=== PATIENT | female | born 1950 | race African-American/Black ===

== ENCOUNTER 2016-12-26 13:04 | Emergency (ER) | payer MEDICARE, OTHER ==
[~2016-12-26 13:04] MED LIST: ATEN50TA PO; CALC600T4 PO; ESCI10TA PO; ESOM40CA25 PO; GABA-586 PO; HYDR50TA6 PO; MELA3TAB PO; METF850T2 PO; SIMV10TA3 PO
[2016-12-26 15:37] LABS: OBC FLU VALID
[2016-12-26 15:57] LABS: BASO % 0 % (0-3); EOS % 0 % (0-3); HEMATOCRIT 41.9 % (36.0-47.0); HEMOGLOBIN 13.4 g/dL (12.0-15.5); LYMPH # 0.5 x10^3/uL (1.0-4.8); LYMPH % 8 % (24-48); MEAN CORPUSCULAR HEMOGLOBIN 28 pg (25-35); MEAN CORPUSCULAR HGB CONC 32 g/dL (31-37); MEAN CORPUSCULAR VOLUME 87 fL (79-100); MONO % 12 % (0-9); NEUT % 79 % (31-73); PLATELET COUNT 176 x10^3/uL (140-400); RED BLOOD COUNT 4.81 x10^6/uL (3.50-5.40); WHITE BLOOD COUNT 6.2 x10^3/uL (4.0-11.0)
[2016-12-26] MEDS ORDERED: OSELTAMIVIR 75 MG CAPSULE PO ONE (16:00)
[2016-12-26] MEDS ORDERED: IV NORMAL SALINE 1000ML BAG 1,000 ML IV SCH (16:00)
[2016-12-26] MEDS ORDERED: ACETAMINOPHEN 500 MG TABLET PO ONE (16:00)
[2016-12-26 16:04] LABS: CREATININE 0.9 mg/dL (0.6-1.0)
[2016-12-26 16:10] LABS: ALBUMIN 3.7 g/dL (3.4-5.0); ALBUMIN/GLOBULIN RATIO 0.8 (1.0-1.7); TOTAL BILIRUBIN 0.7 mg/dL (0.2-1.0); TOTAL PROTEIN 8.4 g/dL (6.4-8.2)
--- NOTE | 2016-12-26 16:33 | RAD ---
Single view chest History:fever, cough An AP view of the chest is submitted. Comparison: None. Findings: Patient is somewhat rotated for exam. Pericardial cardiac silhouette is within normal limits. There is probably tortuous and possibly ectatic thoracic aorta. There is mild interstitial opacity bilaterally of uncertain chronicity. There is no significant pleural fluid. There is no lobar consolidation. Impression: There is probably tortuous and possibly ectatic thoracic aorta. There is no lobar consolidation. There is mild interstitial opacity of uncertain chronicity.
[2016-12-26 16:44] VITALS: BP 149/76
[2016-12-26] MEDS ORDERED: OSEL75CA PO (16:49)
[2016-12-26] MEDS ORDERED: AZIT250T6 PO (16:49)
--- NOTE | 2016-12-26 16:49 | PHYS DOC ---
Past Medical History Past Medical History: Diabetes-Type II, GERD, Hypertension Past Surgical History: No Surgical History Alcohol Use: None Drug Use: None Adult General Chief Complaint Chief Complaint: FEVER HPI HPI Patient is a 66 year old female who complains that on Tuesday she got sick after work with a cough and a fever. She's been sick since then, a little less than 48 hours now. She feels terrible. She aches all over. She's felt feverish. She has a cough but is not short of air. She's had nausea but no vomiting. No diarrhea. She is in good general health. No chronic lung problems. PCP Dr. Rocha Review of Systems Review of Systems Constitutional: As in history of present illness Eyes: Denies change in visual acuity, redness, or eye pain [] HENT: Denies nasal congestion or sore throat [] Respiratory: As in history of present illness Cardiovascular: Denies chest pain GI: As in history of present illness : Denies dysuria or hematuria [] Musculoskeletal: Denies back pain or joint pain [] Integument: Denies rash or skin lesions [] Neurologic: Denies severe headache, focal weakness or sensory changes [] Current Medications Current Medications Current Medications Medications (Trade) Dose Ordered Sig/Gopi Start Time Stop Time Status Last Admin Dose Admin Acetaminophen 1000 mg 1,000 mg 1X ONCE 12/26/16 16:00 12/26/16 16:01 DC 12/26/16 15:59 1,000 MG Oseltamivir Phosphate (Tamiflu) 75 mg 1X ONCE 12/26/16 16:00 12/26/16 16:01 DC 12/26/16 16:03 75 MG Sodium Chloride (Iv Sodium Chloride 0.9% 1000ml Bag) 1,000 ml @ 1,000 mls/hr Q1H 12/26/16 16:00 12/26/16 16:59 12/26/16 16:00 1,000 MLS/HR Allergies Allergies Allergies Coded Allergies Type Severity Reaction Last Updated Verified No Known Drug Allergies 11/05/16 No Physical Exam Physical Exam Constitutional: Well developed, well nourished, febrile, appears to feel ill, alert, mentating normally. HENT: Normocephalic, atraumatic, bilateral external ears normal, oropharynx moist, no oral exudates, nose normal. [] Eyes: conjunctiva normal, no discharge. [] Neck: Normal range of motion, no stridor. [] Cardiovascular:Heart rate regular rhythm, tachycardic, no murmur [] Lungs & Thorax: Bilateral breath sounds clear to auscultation [] Abdomen: Bowel sounds normal, soft, no tenderness, no masses, no pulsatile masses. [] Skin: Warm, dry, no erythema, no rash. [] Extremities: No tenderness, no cyanosis, no clubbing, ROM intact, no edema. [] Neurologic: Alert and oriented X 3, normal motor function, normal sensory function, no focal deficits noted. [] Current Patient Data Vital Signs Vital Signs Date Time Temp Pulse Resp B/P Pulse Ox O2 Delivery O2 Flow Rate FiO2 12/26/16 14:45 100.4 118 22 148/88 96 Room Air 100.4 Lab Values Laboratory Tests Test 12/26/16 14:50 12/26/16 15:00 Influenza Type A Antigen Positive (NEGATIVE) Influenza Type B Antigen Negative (NEGATIVE) White Blood Count 6.2x10^3/uL (4.0-11.0) Red Blood Count 4.81x10^6/uL (3.50-5.40) Hemoglobin 13.4g/dL (12.0-15.5) Hematocrit 41.9% (36.0-47.0) Mean Corpuscular Volume 87fL (79-100) Mean Corpuscular Hemoglobin 28pg (25-35) Mean Corpuscular Hemoglobin Concent 32g/dL (31-37) Red Cell Distribution Width 14.0% (11.5-14.5) Platelet Count 176x10^3/uL (140-400) Neutrophils (%) (Auto) 79% (31-73) H Lymphocytes (%) (Auto) 8% (24-48) L Monocytes (%) (Auto) 12% (0-9) H Eosinophils (%) (Auto) 0% (0-3) Basophils (%) (Auto) 0% (0-3) Neutrophils # (Auto) 4.9x10^3uL (1.8-7.7) Lymphocytes # (Auto) 0.5x10^3/uL (1.0-4.8) L Monocytes # (Auto) 0.7x10^3/uL (0.0-1.1) Eosinophils # (Auto) 0.0x10^3/uL (0.0-0.7) Basophils # (Auto) 0.0x10^3/uL (0.0-0.2) Sodium Level 137mmol/L (136-145) Potassium Level 4.0mmol/L (3.5-5.1) Chloride Level 102mmol/L (98-107) Carbon Dioxide Level 24mmol/L (21-32) Anion Gap 11 (6-14) Blood Urea Nitrogen 11mg/dL (7-20) Creatinine 0.9mg/dL (0.6-1.0) Estimated GFR (Cockcroft-Gault) 76.0 BUN/Creatinine Ratio 12 (6-20) Glucose Level 109mg/dL (70-99) H Calcium Level 11.0mg/dL (8.5-10.1) H Total Bilirubin 0.7mg/dL (0.2-1.0) Aspartate Amino Transferase (AST) 29U/L (15-37) Alanine Aminotransferase (ALT) 25U/L (14-59) Alkaline Phosphatase 78U/L (46-116) Total Protein 8.4g/dL (6.4-8.2) H Albumin 3.7g/dL (3.4-5.0) Albumin/Globulin Ratio 0.8 (1.0-1.7) L Laboratory Tests 12/26/16 15:00 Laboratory Tests 12/26/16 15:00 EKG EKG [] Radiology/Procedures Radiology/Procedures One view portable chest x-ray read by me. There may be a 5 lobe interstitial infiltrate. There is no focal infiltrate. Heart size is normal. [] Course & Med Decision Making Course & Med Decision Making Pertinent Labs and Imaging studies reviewed. (See chart for details) 66-year-old female who is a few hours under 48 hours into her illness. Positive for influenza. I gave her first dose of Tamiflu here in the ED. She is tachycardic and febrile, she was given IV fluids and acetaminophen. She is coughing and I believe her chest x-ray may show an interstitial infiltrate. She does not have a lobar infiltrate. It does not appear to be an influenza related or post-influenza pneumonia on chest x-ray. She'll be started additionally on a Z-Maurice. She is nontoxic. After hydration, she'll be discharged to home to rest on the Zpack and Tamiflu. [] Dragon Disclaimer Dragon Disclaimer This electronic medical record was generated, in whole or in part, using a voice recognition dictation system. Departure Departure Impression: Primary Impression: Influenza A Additional Impression: Pneumonia Disposition: ADMITTED INPATIENT Condition: STABLE Referrals: MARIA VICTORIA ROCHA MD (PCP) Patient Instructions: Influenza A (H1N1), Pneumonia, Adult, Pofo-dd-Mewk Additional Instructions: Your influenza test was positive, and your chest x-ray looks like you might have pneumonia. We will treat you for influenza with Tamiflu. You had your first dose here in the emergency department. Take your next dose later tonight and then every 12 hours until gone. I wrote a prescription for a Z-Maurice, a 5 day antibiotic for pneumonia. Fill this and take as instructed. Stay at home and rest for 5 days to avoid spreading influenza to other people. Plenty of fluids. For fever, take acetaminophen (Tylenol) 1000 mg every 6 hours [id number]. If needed, you may also take ibuprofen 800 mg (4 OTC pills) every 6 hours, alternate so you're taking one or the other every 3 hours. Scripts Azithromycin (Azithromycin Tablet)250 Mg Tablet1 Pkg PO UD #6 TAB As directed for pneumonia Prov:ESTEBAN CASTILLO MD 12/26/16 Oseltamivir Phosphate (Tamiflu)75 Mg Capsule1 Cap PO BID #10 CAP One every 12 hours for influenza Prov:ESTEBAN CASTILLO MD 12/26/16 Problem Qualifiers ESTEBAN CASTILLO MD Dec 26, 2016 16:49
== END 2016-12-26 16:58 | disposition home or self-care (01) ==
LOC: ER 13:04
DX: J09.X2 Influenza due to identified novel influenza A virus with other respiratory manifestations (principal); J18.9 Pneumonia, unspecified organism; E11.9 Type 2 diabetes mellitus without complications; I10 Essential (primary) hypertension
CPT/HCPCS: 36415; 71010; 80053; 85027; 87804; 96360; 99285; J7030

== ENCOUNTER → 2017-06-23 | Outpatient (CLI) | payer MEDICARE ==
[~2017-06-23] MED LIST changes: +AZIT250T6 PO; -ESCI10TA PO; +ESCITALOPRAM OX10 MG PO; -MELA3TAB PO; +MELA3TAB2 PO; +OSEL75CA PO
--- NOTE | 2017-06-23 10:43 | KCIC ---
EXAM: Right lower extremity arterial Doppler sonogram. HISTORY: Peripheral artery disease. Right leg pain. TECHNIQUE: Grayscale and color Doppler sonographic imaging of the right lower extremity arteries with spectral waveform analysis was performed. COMPARISON: None. FINDINGS: There is minimal atherosclerotic plaque within the right lower extremity arteries, primarily within the common femoral artery and calf arteries. There are biphasic and slightly triphasic waveforms throughout the right lower extremity arteries. The peak systolic velocities within the right lower extremity arteries measure 113 cm/s within the common femoral artery, 58 cm/s within the deep femoral artery, 93 cm/s within the proximal superficial femoral artery, 83 cm/s within the mid superficial femoral artery, 88 cm/s within the distal superficial femoral artery, 50 cm/s within the popliteal artery, 52 cm/s within the proximal posterior tibial artery, 59 cm/s within the distal posterior tibial artery, 47 cm/s within the peroneal artery, 67 cm/s within the anterior posterior tibial artery, and 80 cm/s within the dorsalis pedis artery IMPRESSION: Minimal atherosclerotic plaque within the right lower extremity arteries and predominant in biphasic waveforms within the right lower extremity arteries, with peak systolic velocities described above. There is no evidence of high-grade stenosis or occlusion. Electronically signed by: Mary Garg MD (06/23/2017 10:40 AM) [facility]
== END | disposition home or self-care (01) ==
LOC: KCIC US 09:24
PROVIDERS: ATTEND Internal Medicine
DX: I73.9 Peripheral vascular disease, unspecified (principal); M79.604 Pain in right leg
CPT/HCPCS: 93926

== ENCOUNTER 2017-10-16 06:55 | Emergency (ER) | payer MEDICARE ==
[~2017-10-16] VITALS: Ht 165.1 cm; Wt 88.0 kg
[2017-10-16 07:13] VITALS: BP 134/74
--- NOTE | 2017-10-16 07:16 | PHYS DOC ---
Past Medical History Past Medical History: Diabetes-Type II, GERD, Hypertension Past Surgical History: No Surgical History Alcohol Use: None Drug Use: None Adult General Chief Complaint Chief Complaint: LOWER EXT PAIN HPI HPI Patient is a 67 year old female presents to the ED complaining of left lower leg pain x 1 day. States she felt a pain in her left lower leg last night. States she is concerned she has a blood clot. No history of a blood clot. States she had surgery for torn ligaments 2 years ago on this knee. Denies any recent injury, chest pain, shortness of breath, recent travel, headache, fever, n/v, dizziness or weakness. Review of Systems Review of Systems Constitutional: Denies fever or chills [] Eyes: Denies change in visual acuity, redness, or eye pain [] HENT: Denies nasal congestion or sore throat [] Respiratory: Denies cough or shortness of breath [] Cardiovascular: No additional information not addressed in HPI [] GI: Denies abdominal pain, nausea, vomiting, bloody stools or diarrhea [] : Denies dysuria or hematuria [] Musculoskeletal: Denies back pain or joint pain [] Integument: Denies rash or skin lesions [] Neurologic: Denies headache, focal weakness or sensory changes [] Endocrine: Denies polyuria or polydipsia [] All other systems were reviewed and found to be within normal limits, except as documented in this note. Current Medications Current Medications Current Medications Medications (Trade) Dose Ordered Sig/Gopi Start Time Stop Time Status Last Admin Dose Admin Acetaminophen/ Hydrocodone Bitart (Lortab 5/325) 1 tab 1X ONCE 10/16/17 09:00 10/16/17 09:00 DC 10/16/17 08:49 1 TAB Allergies Allergies Allergies Coded Allergies Type Severity Reaction Last Updated Verified No Known Drug Allergies 11/05/16 No Physical Exam Physical Exam Constitutional: Well developed, well nourished, no acute distress, non-toxic appearance. [] HENT: Normocephalic, atraumatic, bilateral external ears normal, oropharynx moist, no oral exudates, nose normal. [] Eyes: PERRLA, EOMI, conjunctiva normal, no discharge. [] Neck: Normal range of motion, no tenderness, supple, no stridor. [] Cardiovascular:Heart rate regular rhythm, no murmur [] Lungs & Thorax: Bilateral breath sounds clear to auscultation [] Abdomen: Bowel sounds normal, soft, no tenderness, no masses, no pulsatile masses. [] Skin: Warm, dry, no erythema, no rash. [] Back: No tenderness, no CVA tenderness. [] Extremities:MILD TENDERNESS TO LEFT LOWER LEG. NO OVERLYING SKIN CHANGES OR SWELLING. NEGATIVE HOMANS. no cyanosis, no clubbing, ROM intact, no edema. [] Neurologic: Alert and oriented X 3, normal motor function, normal sensory function, no focal deficits noted. [] Psychologic: Affect normal, judgement normal, mood normal. [] Current Patient Data Vital Signs Vital Signs Date Time Temp Pulse Resp B/P (MAP) Pulse Ox O2 Delivery O2 Flow Rate FiO2 10/16/17 07:13 97.9 76 18 134/74 (94) 100 Room Air 97.9 EKG EKG [] Radiology/Procedures Radiology/Procedures PROCEDURE: VENOUS LOWER EXTREMITY LEFT Ultrasound left lower extremity Indication: Left leg pain. Technique: Multiple real-time grayscale images were obtained over the left lower extremity with use of color Doppler imaging and spectral analysis. Static images were submitted for interpretation. Findings: There is no evidence for deep venous thrombosis. There is normal color fill-in on Doppler images. There is also normal response to compression and augmentation of the deep venous system. Impression: No evidence for deep venous thrombosis. [] Course & Med Decision Making Course & Med Decision Making Pertinent Labs and Imaging studies reviewed. (See chart for details) []Discussed ultrasound findings with patient. Patient's pain improved. States she is feeling much better. Patient able to ambulate without assistance. Discussed follow-up with orthopedics in 1-2 days. Provided contact information/ education. Discussed reasons to return to the ED. Patient understands and agrees with plan. Dragon Disclaimer Dragon Disclaimer This electronic medical record was generated, in whole or in part, using a voice recognition dictation system. Departure Departure Impression: Primary Impression: Leg pain Disposition: HOME, SELF-CARE Condition: IMPROVED Referrals: MARIA VICTORIA ROCHA MD (PCP) JAIMEE SESAY MD Patient Instructions: Muscle Strain Scripts Tramadol Hcl (TRAMADOL HCL) 50 Mg Tablet 1 TAB PO PRN Q6HRS, #12 TAB Prov: SHWETHA ROGER 10/16/17 SHWETHA ROGER Oct 16, 2017 07:16
[2017-10-16] MEDS ORDERED: HYDROcodone/APAP 5/325MG 1 TAB TABLET PO ONE ×2 (07:30→09:00)
--- NOTE | 2017-10-16 08:08 | RAD ---
Ultrasound left lower extremity Indication: Left leg pain. Technique: Multiple real-time grayscale images were obtained over the left lower extremity with use of color Doppler imaging and spectral analysis. Static images were submitted for interpretation. Findings: There is no evidence for deep venous thrombosis. There is normal color fill-in on Doppler images. There is also normal response to compression and augmentation of the deep venous system. Impression: No evidence for deep venous thrombosis.
[2017-10-16] MEDS ORDERED: TRAM50TA PO (08:26)
== END 2017-10-16 08:53 | disposition home or self-care (01) ==
LOC: ER 06:55
DX: M79.662 Pain in left lower leg (principal); I10 Essential (primary) hypertension; E11.9 Type 2 diabetes mellitus without complications; K21.9 Gastro-esophageal reflux disease without esophagitis
CPT/HCPCS: 93971; 99284-25

== ENCOUNTER 2017-11-09 16:44 | Emergency (ER) | payer MEDICARE ==
[2017-11-09 17:46] LABS: BILIRUBIN,URINE NEGATIVE (NEG); GLUCOSE,URINE NEGATIVE (NEG); NITRITE,URINE NEGATIVE (NEG); PROTEIN,URINE NEGATIVE (NEG-TRACE)
[2017-11-09 17:52] LABS: BACTERIA,URINE 0 /HPF (0-FEW); RBC,URINE 0 /HPF (0-2); SQUAMOUS EPITHELIAL CELL,UR FEW /LPF; WBC,URINE OCC /HPF (0-4)
[2017-11-09 17:56] LABS: ADD MAN DIFF? NO
[2017-11-09 17:58] LABS: BASO # 0.1 x10^3/uL (0.0-0.2); BASO % 1 % (0-3); EOS % 1 % (0-3); HEMOGLOBIN 13.3 g/dL (12.0-15.5); LYMPH # 2.2 x10^3/uL (1.0-4.8); LYMPH % 42 % (24-48); MEAN CORPUSCULAR HEMOGLOBIN 28 pg (25-35); MEAN CORPUSCULAR HGB CONC 32 g/dL (31-37); MEAN CORPUSCULAR VOLUME 87 fL (79-100); MONO % 7 % (0-9); NEUT % 50 % (31-73); PLATELET COUNT 188 x10^3/uL (140-400); RED BLOOD COUNT 4.72 x10^6/uL (3.50-5.40); RED CELL DISTRIBUTION WIDTH 13.9 % (11.5-14.5); WHITE BLOOD COUNT 5.2 x10^3/uL (4.0-11.0)
[2017-11-09 18:15] LABS: ANION GAP 8 (6-14); BLOOD UREA NITROGEN 10 mg/dL (7-20); CALCIUM 10.7 mg/dL (8.5-10.1); CARBON DIOXIDE 30 mmol/L (21-32); CHLORIDE 103 mmol/L (98-107); CREATININE 0.9 mg/dL (0.6-1.0); GFR 75.8; GLUCOSE 93 mg/dL (70-99); POTASSIUM 3.5 mmol/L (3.5-5.1); SODIUM 141 mmol/L (136-145)
[2017-11-09 18:21] LABS: ALBUMIN 3.8 g/dL (3.4-5.0); ALK PHOS 70 U/L (46-116); ALT (SGPT) 28 U/L (14-59); AST (SGOT) 26 U/L (15-37); DIRECT BILIRUBIN 0.1 mg/dL (0.0-0.2); TOTAL BILIRUBIN 0.4 mg/dL (0.2-1.0)
[2017-11-09 18:22] LABS: TROPONINI < 0.017 ng/mL (0.000-0.055)
[2017-11-09 18:24] LABS: LACTIC ACID 1.6 mmol/L (0.4-2.0)
== END 2017-11-09 19:35 | disposition home or self-care (01) ==
LOC: ER 16:44
DX: R42 Dizziness and giddiness (principal); R20.0 Anesthesia of skin; E78.00 Pure hypercholesterolemia, unspecified; E11.9 Type 2 diabetes mellitus without complications; I10 Essential (primary) hypertension; K21.9 Gastro-esophageal reflux disease without esophagitis; M32.9 Systemic lupus erythematosus, unspecified; Z86.73 Personal history of transient ischemic attack (TIA), and cerebral infarction without residual deficits
CPT/HCPCS: 36415; 70450; 80048; 80076; 81001; 83605; 83690; 84484; 85025; 93005; 99285-25

== ENCOUNTER → 2019-01-24 | Outpatient (CLI) | payer MEDICARE ==
[2017-11-09 19:15] VITALS: BP 129/61
[~2019-01-24] MED LIST changes: -GABA-586 PO; +GABA300C18 PO; +MECL25TA3 PO; -METF850T2 PO; +METF850T8 PO; +TRAM50TA PO
--- NOTE | 2019-01-24 12:48 | CARD ---
MR#: [id number] Date of Study: 01/24/2019 Ordering Physician: МАРИЯ SORIANO, Referring Physician: МАРИЯ SORIANO, Tech: Sara Gilmore [facility] APPROVED REPORT EXAM: Two-dimensional and M-mode echocardiogram with Doppler and color Doppler. Other Information Quality : AverageHR: 72bpm Rhythm : NSRTechnically limited study due to body habitus. INDICATION Hypertension/HCVD 2D DIMENSIONS RVDd3.2 (2.9-3.5cm)Left Atrium(2D)3.1 (1.6-4.0cm) IVSd1.0 (0.7-1.1cm)Aortic Root(2D)2.6 (2.0-3.7cm) LVDd4.1 (3.9-5.9cm)LVOT Diameter2.1 (1.8-2.4cm) PWd1.0 (0.7-1.1cm)LVDs2.4 (2.5-4.0cm) FS (%) 42.5 %SV55.5 ml LVEF(%)74.0 (>50%) M-Mode DIMENSIONS Left Atrium(MM)3.71 (2.5-4.0cm)Aortic Root3.16 (2.2-3.7cm) Aortic Valve AoV Peak Bob.150.7cm/sAoV VTI30.6cm AO Peak GR.9.1mmHgLVOT Peak Bob.110.2cm/s AO Mean GR.5mmHgAVA (VMAX)2.42cm2 RUBINA (VTI)2.40cm2 Mitral Valve MV E Gntrxrpy63.6cm/sMV DECEL [id number] MV A Nfiachft84.0cm/sE/A Ratio0.8 MV A Psfcrhlx649un Pulmonary Valve PV Peak Rrsmdljo824.1cm/s Tricuspid Valve TR P. Pcomdrcv191dh/sRAP NHIXGBNP4ldNz TR Peak Gr.36uqLuYRMN20utQz LEFT VENTRICLE The left ventricle is normal size. There is normal left ventricular wall thickness. The left ventricl e is hyperdynamic. The Ejection Fraction is >70%. There is normal LV segmental wall motion. Transmitr al Doppler flow pattern is Grade I-abnormal relaxation pattern. RIGHT VENTRICLE The right ventricle is normal size. There is normal right ventricular wall thickness. The right ventr icular systolic function is normal. ATRIA The left atrium size is normal. The right atrium size is normal. The interatrial septum is intact wit h no evidence for an atrial septal defect or patent foramen ovale as noted on 2-D or Doppler imaging. AORTIC VALVE The aortic valve is calcified but opens well. The aortic valve is trileaflet. Doppler and Color Flow revealed no significant aortic regurgitation. There is no significant aortic valvular stenosis. MITRAL VALVE The mitral valve is normal in structure and function. There is no evidence of mitral valve prolapse. There is no mitral valve stenosis. Doppler and Color-flow revealed trace mitral regurgitation. TRICUSPID VALVE The tricuspid valve is normal in structure and function. Doppler and Color Flow revealed trace tricus pid regurgitation. The PA pressure was estimated at 25 mmHg. There is no tricuspid valve prolapse or vegetation. There is no tricuspid valve stenosis. PULMONIC VALVE Doppler and Color Flow revealed no pulmonic valvular regurgitation. There is no pulmonic valvular salazar nosis. GREAT VESSELS The aortic root is normal in size. The ascending aorta is normal in size. The IVC is normal in size a nd collapses >50% with inspiration. PERICARDIAL EFFUSION There is no evidence of significant pericardial effusion. Critical Notification Critical Value: No <Conclusion> The left ventricle is hyperdynamic. The Ejection Fraction is >70%. There is normal LV segmental wall motion. Signed by : Мария Soriano, Electronically Approved : 01/24/2019 12:48:05
--- NOTE | 2019-01-25 16:55 | RAD ---
MR#: [id number] Date of Study: 01/24/2019 Ordering Physician: МАРИЯ SORIANO, Referring Physician: МАРИЯ SORIANO, Tech: Cele Estrella, AJ, RVT, RTR APPROVED REPORT Patient Location: OUT-PATIENT Indications Uncontrolled HTN Renal Artery Doppler Right Renal Artery Left Renal Arter y Proximal 98.6/27.8 cm/secProximal 131.1/38.2 cm/sec Mid 120.1/34.2 cm/secMid 124.7/44.5 cm/sec Distal 72.8/29.5 cm/secDistal 168.0/48.4 cm/sec Renal/Aorta Ratio 1.36Renal/Aorta Ratio 1.40 Prox. Resistive Index 0.72Prox. Resistive Index 0.71 Mid Resistive Index 0.72Mid Resistive Index 0.64 Distal Resistive Index 0.59Distal Resistive Index 0.71 Rt. Segmental A. 56.0/19.9 cm/secLt. Segmental A. 54.1/16.5 cm/sec Renal Measurements RightLeft Kidney Fnsiym01.56 cm 4.63 cmKidney Swhwgs78.18 cm 6 cm Right Additional FindingsLeft Additional Findings Aortic Doppler VelocityWaveform Mid. Aorta 88.6 cm/sec Findings Grayscale images of the bilateral kidneys reveal mild cortical hypertrophy and the left kidney contai ns 2 renal cysts measuring 3.4 x 3.2 x 2.9 at the superior pole and in the midsegment measuring 1.7 x 1.3 x 0.9 cm. These appear to be simple cysts but are difficult to visualize. Spectral waveforms and color Doppler involving the right and left renal artery demonstrate normal christi w velocities. Normal resistive indices and renal to aortic ratios are noted. Critical Notification Critical Value: No <Conclusion> No significant renal artery stenosis identified. Signed by : Мария Soriano, Electronically Approved : 01/25/2019 16:55:30
== END | disposition home or self-care (01) ==
LOC: US 08:43
PROVIDERS: ATTEND Internal Medicine Cardiovascular Disease
DX: I10 Essential (primary) hypertension (principal)
CPT/HCPCS: 93306; 93975

== ENCOUNTER → 2020-06-19 | Outpatient (CLI) | payer MEDICARE ==
[2017-11-09 19:15] VITALS: BP 129/61
[~2020-06-19] MED LIST changes: -CALC600T4 PO; +CALC600T6 PO; +MECL-75 PO; -MECL25TA3 PO; -MELA3TAB2 PO; +MELA3TAB4 PO; +SIMV10TA15 PO; -SIMV10TA3 PO
--- NOTE | 2020-06-19 10:55 | RAD ---
MR#: [id number] Date of Study: 06/19/2020 Ordering Physician: МАРИЯ SORIANO, Referring Physician: МАРИЯ SORIANO, Tech: Jonas Durbin MBA, RDMS, RVT, RDCS, RTR APPROVED REPORT Patient Location: OUT-PATIENT Indications PAD Findings Right arm: 130 Right ankle PT 152, DP 150 Left arm 133 Left ankle PT 151, DP 148 Bilateral indices are 1.1 Critical Notification Critical Value: No <Conclusion> Normal bilateral DOUG Signed by : Мария Soriano, Electronically Approved : 06/19/2020 10:54:54
--- NOTE | 2020-06-19 11:24 | RAD ---
MR#: [id number] Date of Study: 06/19/2020 Ordering Physician: МАРИЯ SORIANO, Referring Physician: МАРИЯ SORIANO, Tech: Jonas Durbin MBA, RDMS, RVT, RDCS, RTR APPROVED REPORT Patient Location: OUT-PATIENT Indications PAD VELOCITY AND DOPPLER WAVEFORM ANALYSIS RIGHT cm/secWaveformSeverity LEFT cm/secWaveform Severity dCFA 137.0BiphasicdCFA 117.0Biphasic Prof Fem Art. 59.0BiphasicProf Fem Art. 59.0Biphasic Fem Art Prox. 124.0BiphasicFem Art Prox. 122.0Biphasic Fem Art Mid. 99.0BiphasicFem Art Mid. 93.0Biphasic Fem Art Dist. 72.0BiphasicFem Art Dist. 94.0Biphasic Pop Art(Fossa) 82.0BiphasicPop Art(AK) 75.0Biphasic HV[employer] COMMERCIAL SALESPERSON Prox. 69.0BiphasicPTA Prox. 66.0Biphasic HV[employer] COMMERCIAL SALESPERSON Dist. 77.0BiphasicPTA Dist. 80.0Biphasic Per Art Mid. 62.0BiphasicPer Art Mid. 46.0Biphasic RON Prox. 83.0BiphasicATA Prox. 78.0Biphasic DPA 68BiphasicDPA 74Biphasic Findings Grayscale images of the bilateral lower extremity arterial vessels demonstrate mild to moderate diffu se intimal hyperplasia. No obvious focal obstruction is noted. Biphasic spectral waveforms througho ut. Critical Notification Critical Value: No <Conclusion> 1. No significant lower extremity arterial disease with bilateral three-vessel runoff. Signed by : Мария Soriano, Electronically Approved : 06/19/2020 11:23:52
--- NOTE | 2020-06-19 11:37 | RAD ---
MR#: [id number] Date of Study: 06/19/2020 Ordering Physician: МАРИЯ SORIANO, Referring Physician: МАРИЯ SORIANO, Tech: Jonas Durbin MBA, RDMS, RVT, RDCS, RTR APPROVED REPORT Patient Location: OUT-PATIENT Laterality:Bilateral Indications pad Doppler Spectral Velocity Analysis Right Left pCCA 92/28 cm/spCCA 127/28 cm/s mCCA 86/24 cm/smCCA 107/30 cm/s dCCA 78/22 cm/sdCCA 93/25 cm/s Bulb 64/22 cm/sBulb 50/19 cm/s ECA 91/ cm/sECA 61/ cm/s pICA 79/25 cm/spICA 116/40 cm/s Ace 92/34 cm/smICA 108/36 cm/s dICA 105/37 cm/sdICA 109/36 cm/s Vert. 54/ cm/sVert. 38/ cm/s Subcl. 83/ cm/sSubcl. 76/ cm/s ICA/CCA 1.14ICA/CCA 0.91 Findings Grayscale images of the bilateral common carotid, external and internal carotid vessels demonstrates mild to moderate diffuse intimal hyperplasia without any focal obstructive plaque. Overall 0 to less than 50% stenosis based on velocity criteria. Normal ICA to CCA ratios bilaterally . Critical Notification Critical Value: No <Conclusion> No significant carotid occlusive disease bilaterally. Signed by : Мария Soriano, Electronically Approved : 06/19/2020 11:37:19
== END | disposition home or self-care (01) ==
LOC: US 09:21
PROVIDERS: ATTEND Internal Medicine Cardiovascular Disease
DX: I73.9 Peripheral vascular disease, unspecified (principal); I65.23 Occlusion and stenosis of bilateral carotid arteries; I77.3 Arterial fibromuscular dysplasia
CPT/HCPCS: 93880; 93922; 93925

== ENCOUNTER → 2020-08-28 | Outpatient (CLI) | payer MEDICARE ==
[2017-11-09 19:15] VITALS: BP 129/61
--- NOTE | 2020-08-28 16:49 | CARD ---
MR#: [id number] Date of Study: 08/28/2020 Ordering Physician: МАРИЯ SORIANO, Referring Physician: МАРИЯ SORIANO, Tech: Cele Gordon APPROVED REPORT EXAM: Two-dimensional and M-mode echocardiogram with Doppler and color Doppler. Other Information HR: 63bpm INDICATION Hypertension/HCVD RISK FACTORS Hyperlipidemia Diabetes 2D DIMENSIONS RVDd4.3 (2.9-3.5cm)Left Atrium(2D)2.3 (1.6-4.0cm) IVSd1.3 (0.7-1.1cm)Aortic Root(2D)2.7 (2.0-3.7cm) LVDd4.1 (3.9-5.9cm)LVOT Diameter1.9 (1.8-2.4cm) PWd1.2 (0.7-1.1cm)LVDs3.0 (2.5-4.0cm) FS (%) 26.6 %SV39.2 ml Aortic Valve AoV Peak Bob.139.3cm/sAoV VTI33.3cm AO Peak GR.7.8mmHgLVOT Peak Bob.105.1cm/s LVOT VTI 24.50cmAO Mean GR.4mmHg RUBINA (VMAX)1.89as1AMY (VTI)2.12cm2 Mitral Valve MV E Ekixtbdz67.2cm/sMV DECEL PYEG252xg MV A Hqecxizn37.3cm/sMV E Mean Gr.1mmHg MV PGX53yhE/A Ratio1.0 MVA (PHT)3.81cm2 TDI E/Lateral E'6.9E/Medial E'11.6 Pulmonary Valve PV Peak Hphigsda16.0cm/sPV Peak Grad.3mmHg Tricuspid Valve TR P. Ycizthpw677zd/sRAP [id number] TR Peak Gr.39xdOkJNMA69ewJg Pulmonary Vein S1 Mxqbtokf94.0cm/sD2 Ogujlyfx39.0cm/s PVa vpisowiq374nive LEFT VENTRICLE The left ventricle is normal size. There is mild concentric left ventricular hypertrophy. The left ve ntricular systolic function is normal and the ejection fraction is within normal range. The Ejection Fraction is 50-55%. There is normal LV segmental wall motion. Transmitral Doppler flow pattern is Gra de II-pseudonormal filling dynamics. RIGHT VENTRICLE The right ventricle is normal size. There is normal right ventricular wall thickness. The right ventr icular systolic function is normal. ATRIA The left atrium size is normal. The right atrium size is normal. The interatrial septum is intact wit h no evidence for an atrial septal defect or patent foramen ovale as noted on 2-D or Doppler imaging. AORTIC VALVE The aortic valve is thickened but opens well. Doppler and Color Flow revealed no significant aortic r egurgitation. There is no significant aortic valvular stenosis. MITRAL VALVE The mitral valve is normal in structure and function. There is no evidence of mitral valve prolapse. There is no mitral valve stenosis. Doppler and Color-flow revealed trace mitral regurgitation. TRICUSPID VALVE The tricuspid valve is normal in structure and function. Doppler and Color Flow revealed trace tricus pid regurgitation with an estimated PAP of 30 mmHg. There is no tricuspid valve stenosis. PULMONIC VALVE The pulmonic valve is partially flail. Doppler and Color Flow revealed no pulmonic valvular regurgita tion. GREAT VESSELS The aortic root is normal in size. The ascending aorta is normal in size. The IVC is normal in size a nd collapses >50% with inspiration. PERICARDIAL EFFUSION There is no evidence of significant pericardial effusion. Critical Notification Critical Value: No <Conclusion> The left ventricle is normal size. The left ventricular systolic function is normal and the ejection fraction is within normal range. The Ejection Fraction is 50-55%. There is mild concentric left ventricular hypertrophy. Doppler and Color Flow revealed no significant aortic regurgitation. There is no significant aortic valvular stenosis. Doppler and Color-flow revealed trace mitral regurgitation. Doppler and Color Flow revealed trace tricuspid regurgitation with an estimated PAP of 30 mmHg. Signed by : Sergio Townsend MD Electronically Approved : 08/28/2020 16:49:04
== END ==
LOC: ECHO 08:53
PROVIDERS: ATTEND Internal Medicine Cardiovascular Disease
DX: I11.9 Hypertensive heart disease without heart failure (principal)
CPT/HCPCS: 93306